=== PATIENT | female | born 1970 | race Caucasian/White ===

== ENCOUNTER → 2019-06-09 13:35 | Outpatient (BNVA) | payer OTHER, SELFPAY | PROVIDERS: PCP Nurse Practitioner Family; Visit Provider Specialist | DX: G31.84 Mild cognitive impairment of uncertain or unknown etiology (principal); M79.7 Fibromyalgia; G92 Toxic encephalopathy; G43.711 Chronic migraine without aura, intractable, with status migrainosus | CPT/HCPCS: 96116; 99204 ==